=== PATIENT | female | born 1970 | race Caucasian/White ===

== ENCOUNTER → 2023-04-09 | Outpatient (CLI) | payer BC ==
[~2023-04-09] MED LIST: CITA20TA28 PO
== END | disposition home or self-care (01) ==
LOC: RAD 13:45
PROVIDERS: ATTEND Physician Assistant Medical
DX: J32.9 Chronic sinusitis, unspecified (principal)
CPT/HCPCS: 70220

== ENCOUNTER 2023-09-15 07:39 | Emergency (ER) | payer BC, OTHER ==
[~2023-09-15] VITALS: Ht 165.1 cm; Wt 70.5 kg
[2023-09-15 07:46] VITALS: BP 119/75; PULSE 66; RESP 18; TEMP 97.8; O2SAT 99
[2023-09-15] MEDS: ibuprofen tablet 400 MG TABLET PO ONE (08:53)
== END 2023-09-15 09:36 | disposition home or self-care (01) ==
LOC: ER 07:40
DX: S93.491A Sprain of other ligament of right ankle, initial encounter (principal); S83.8X1A Sprain of other specified parts of right knee, initial encounter; J45.909 Unspecified asthma, uncomplicated; Z88.1 Allergy status to other antibiotic agents; Z91.018 Allergy to other foods; Z79.899 Other long term (current) drug therapy; Z90.710 Acquired absence of both cervix and uterus; Z98.890 Other specified postprocedural states; X50.1XXA Overexertion from prolonged static or awkward postures, initial encounter; Y93.89 Activity, other specified; Y92.89 Other specified places as the place of occurrence of the external cause; Y99.8 Other external cause status
CPT/HCPCS: 29505; 73564; 73610; 99284

== ENCOUNTER 2023-09-27 09:42 | Outpatient (CLI) | payer BC | END 2023-09-27 23:59 | disposition home or self-care (01) | LOC: MRI 09:42 | PROVIDERS: ATTEND Orthopaedic Surgery | DX: S82.831A Other fracture of upper and lower end of right fibula, initial encounter for closed fracture (principal); M23.91 Unspecified internal derangement of right knee; M25.061 Hemarthrosis, right knee; X58.XXXA Exposure to other specified factors, initial encounter; Y93.89 Activity, other specified; Y92.89 Other specified places as the place of occurrence of the external cause; Y99.8 Other external cause status | CPT/HCPCS: 73721 ==

== ENCOUNTER 2024-02-11 06:40 | Outpatient (CLI) | payer BC ==
[~2024-02-11 06:40] MED LIST changes: +GADOTERATE MEGLUMINE 7.5 MMOL/15 ML VIAL IV ONE; +LIDOcaine 1% 30ml preserv. free vial ONE; +LIDOcaine 1%/PF 5ML 10 MG/ML VIAL ONE; +iohexol 300 MG/1 ML 50ml polymer ONE
== END 2024-02-11 23:59 | disposition home or self-care (01) ==
LOC: RAD 06:40
PROVIDERS: ATTEND Orthopaedic Surgery
DX: S63.591A Other specified sprain of right wrist, initial encounter (principal); M25.531 Pain in right wrist; M25.431 Effusion, right wrist; M65.841 Other synovitis and tenosynovitis, right hand; X58.XXXA Exposure to other specified factors, initial encounter; Y93.89 Activity, other specified; Y92.89 Other specified places as the place of occurrence of the external cause; Y99.8 Other external cause status
CPT/HCPCS: 25246; 73222; 77002; A9575; J2003; J3490; Q9967; 73115

== ENCOUNTER 2024-02-11 08:49 | Outpatient (CLI) | payer BC ==
[~2024-02-11 08:49] MED LIST changes: -GADOTERATE MEGLUMINE 7.5 MMOL/15 ML VIAL IV ONE; -LIDOcaine 1% 30ml preserv. free vial ONE; -LIDOcaine 1%/PF 5ML 10 MG/ML VIAL ONE; -iohexol 300 MG/1 ML 50ml polymer ONE
== END 2024-02-11 23:59 | disposition home or self-care (01) ==
LOC: RAD 08:49
PROVIDERS: ATTEND Orthopaedic Surgery
DX: M25.511 Pain in right shoulder (principal); J98.4 Other disorders of lung
CPT/HCPCS: 73030

== ENCOUNTER 2024-02-21 15:06 | Outpatient (CLI) | payer BC ==
[~2024-02-21 15:06] MED LIST changes: +GADOTERATE MEGLUMINE 7.5 MMOL/15 ML VIAL IV ONE; +LIDOcaine 1% 30ml preserv. free vial ONE; +LIDOcaine 1%/PF 5ML 10 MG/ML VIAL ONE; +iohexol 300 MG/1 ML 50ml polymer ONE
== END 2024-02-21 23:59 | disposition home or self-care (01) ==
LOC: RAD 15:06
PROVIDERS: ATTEND Orthopaedic Surgery
DX: M25.511 Pain in right shoulder (principal); M19.011 Primary osteoarthritis, right shoulder; M75.51 Bursitis of right shoulder; M25.411 Effusion, right shoulder; M75.91 Shoulder lesion, unspecified, right shoulder
CPT/HCPCS: 23350; 73222; 77002; A9575; J2003; J3490; Q9967; 73040

== ENCOUNTER 2025-02-01 08:47 | Emergency (ER) | payer BC ==
[~2025-02-01] VITALS: Ht 165.1 cm; Wt 74.6 kg
[~2025-02-01 08:47] MED LIST changes: +CITA-178 PO; -CITA20TA28 PO; -GADOTERATE MEGLUMINE 7.5 MMOL/15 ML VIAL IV ONE; -LIDOcaine 1% 30ml preserv. free vial ONE; -LIDOcaine 1%/PF 5ML 10 MG/ML VIAL ONE; -iohexol 300 MG/1 ML 50ml polymer ONE
[2025-02-01 08:56] VITALS: TEMP 98.3
--- NOTE | 2025-02-01 09:07 | Physician Documentation ---
History of Present Illness ~ Chief Complaint: Toe pain Stated Complaint: TOE PAIN Time Seen by MD: 09:02 Primary Medical Doctor: MELISSA GUERRERO [facility] This 4-year-old female presents to the emergency department for right 5th toe pain. She reports that last night, she stubbed her toe, has had pain and bruising ever since. Denies any other symptoms to include chills and fever, chest pain or shortness of breath. Reports that she felt somewhat nauseous with the issue occurred yesterday, but this has resolved. Pain is much better today. Tetanus witin 5 years: No Medication Reconciliation Allergies: Coded Allergies: amoxicillin (Verified Allergy, Unknown, 02/01/25) lactase (Verified Allergy, Unknown, 02/01/25) Scheduled Citalopram Hydrobromide* (Celexa*), 20 MG PO DAILY, (Reported) Past Medical History Past Medical History: Angina, Asthma Past Surgical History: hysterectomy Other Past Surgical History: cardiac cath Alcohol Use: None Drug Use: none Lives with: Spouse Lives In: Home Occupation: employed Review of Systems ROS As stated above in the HPI, otherwise all systems are reviewed and negative. Physical Exam Vital Signs: Temperature: 98.3, Source: Oral, Heart Rate: 78, Respiratory Rate: 18, BP: 123/69, Pulse Oximetry: 99, Weight: 74.600 Oxygen Flow Rate: 0 Physical Exam General: Alert, no apparent distress. Neck: Full range of motion. Respiratory: Lungs clear, no respiratory distress. Chest: No accessory muscle use. Cardiovascular: Regular rate and rhythm, no murmurs. Gastrointestinal: Soft, nontender, nondistended. Bowels sounds present. Extremities: Ecchymosis and swelling right fifth digit. No obvious deformity. Neurologic: Oriented x4. Psychiatric: Normal mood and affect. Skin: Normal color, warm and dry. Progress Results/Orders Results/Orders Vital Signs 02/01/25 02/01/25 08:56 09:47 Temp 98.3 Pulse 78 78 Resp 18 16 B/P (MAP) 123/69 123/69 Pulse Ox 99 95 O2 Flow Rate 0 EKG/XRAY/CT/US/VASC/MRI Bone/Soft Tissue X-Ray (Spine) : Additional Comment [place] [id number] [address] [facility], [facility] [id number] DIAGNOSTIC RADIOLOGY Patient: PAT UNR Medical Record: [id number] [facility] : 1970, Age: 54 Sex: Female Location: ER Patient Status: [facility] ER Service Date/Time: 02/01/25900 Ordering Physician: LORELEI ECHOLS DO Exam: TOE(S) CLINICAL INDICATION: TOE PAIN TECHNIQUE: DI TOE(S) right Comparison: None FINDINGS/IMPRESSION: : There is no evidence of acute fracture or dislocation. Soft tissues are unremarkable. Electronically Signed by:GERRY WEINBERG MD Date & Time: 02/01/25929 Dictated by: GERRY WEINBERG MD Dictation date and time: 02/01/25929 Primary Care Provider: NO PRIMARY CARE PROVIDER cc: LORELEI ECHOLS DO ~ Medical Decision Making Additional information obtaine: old records Findings patient is an excellent historian General Diff Dx:Considerations: Include: Abrasion, Contusion, Fracture, Hematoma, Laceration, Malunion, Neurovascular injury, Open fracture, Sprain, Ulcer Knee Diff Dx:Considerations: Include: Other Ankle Diff Dx:Considerations: Include: Other Foot Diff Dx:Considerations: Include: Other Toe Diff Dx:Considerations: Include: Other Departure Time of Disposition: 09:40 Disposition: 01 HOME / SELF CARE / HOMELESS Impression: Primary Impression: Pain of toe Additional Impression: Toe swelling Discharge Instructions: Musculoskeletal Pain Additional Instructions: No fracture on xray. Ice, elevate and use [id number] Ibuprofen or acetaminophen as needed for pain. Return if worse. Referrals: NO PRIMARY CARE PROVIDER (PCP) Education Educated: Patient Educated regarding: diagnosis, treatment, prognosis, need for follow up Signature Scribe Signature: x Attestation: The note accurately reflects work and decisions made by me.Magda Greer NP 02/01/25 09:07 MAGDA MCWILLIAMS NP Feb 01, 2025 09:07
--- NOTE | 2025-02-01 09:33 | RADIOLOGY REPORT ---
CLINICAL INDICATION: TOE PAIN TECHNIQUE: DI TOE(S) right Comparison: None FINDINGS/IMPRESSION: : There is no evidence of acute fracture or dislocation. Soft tissues are unremarkable.
[2025-02-01 09:47] VITALS: BP 123/69; PULSE 78; RESP 16; O2SAT 95
== END 2025-02-01 09:48 | disposition home or self-care (01) ==
LOC: ER 08:47
DX: M79.89 Other specified soft tissue disorders (principal); M79.674 Pain in right toe(s); Z90.710 Acquired absence of both cervix and uterus; Z88.1 Allergy status to other antibiotic agents; Z88.8 Allergy status to other drugs, medicaments and biological substances; Z79.899 Other long term (current) drug therapy; W22.8XXA Striking against or struck by other objects, initial encounter; Y93.89 Activity, other specified; Y92.89 Other specified places as the place of occurrence of the external cause; Y99.8 Other external cause status
CPT/HCPCS: 73660; 99283